=== PATIENT | female | born 1995 | race Caucasian/White ===

== ENCOUNTER → 2024-07-17 | Outpatient (CLI) | payer OTHER | END | disposition home or self-care (01) | LOC: LAB 15:34 → LAB SHORT 15:34 | DX: R82.90 Unspecified abnormal findings in urine (principal) | CPT/HCPCS: 87077; 87086; 87186 ==

== ENCOUNTER 2025-04-17 19:30 | Observation (INO) | payer OTHER ==
[~2025-04-17] VITALS: Ht 162.6 cm; Wt 88.6 kg
[2025-04-17 20:02] LABS: BASOPHILS ABSOLUTE AUTO 0.04 K/mm3 (0.00-0.23); BASOPHILS PERCENT AUTO 0 % (0-2); EOSINOPHILS ABSOLUTE AUTO 0.10 K/mm3 (0.00-0.68); EOSINOPHILS PERCENT AUTO 1 % (0-6); Hematocrit 40.9 % (33.0-51.0); Hemoglobin 13.6 g/dL (11.5-16.0); IMMATURE GRAN ABSOLUTE AUTO 0.02 K/mm3 (0.00-0.10); IMMATURE GRAN PERCENT AUTO 0 % (0-1); LYMPHOCYTES ABSOLUTE AUTO 2.37 K/mm3 (0.84-5.20); LYMPHOCYTES PERCENT AUTO 24 % (21-46); MONOCYTES ABSOLUTE AUTO 0.75 K/mm3 (0.16-1.47); MONOCYTES PERCENT AUTO 7 % (4-13); Mean Corpuscular HGB Conc 33.3 g/dL (31.5-36.5); Mean Corpuscular Volume 92 fL (80-100); NEUTROPHILS ABSOLUTE AUTO 6.79 K/mm3 (1.96-9.15); NEUTROPHILS PERCENT AUTO 68 % (41-73); NRBC ABSOLUTE 0.00 K/mm3 (0.00-0.02); NRBC Auto 0.0 /100 WBC (0.0-0.2); Platelet Count 289 K/mm3 (150-400); RDW Coefficient Variation 12.5 % (11.7-14.2); RDW Standard Deviation 42.5 fL (35.1-46.3)
[2025-04-17 20:11] LABS: Source, Urine Clean Catch
[2025-04-17 20:14] LABS: Bilirubin, Urine Neg (Neg); Glucose Qualitative, Urine Neg (Neg); Ketones, Urine Neg (Neg); Leukocyte Esterase, Urine 3+ (Neg); Protein, Urine 2+ (Neg); Specific Gravity, Urine 1.025 (1.003-1.022); Urobilinogen, Urine NORM (Normal)
[2025-04-17 20:20] LABS: Alanine Aminotransfer (ALT/SGP 28.0 U/L (12-78); Albumin, Blood 4.2 g/dL (3.4-5.0); Albumin/Globulin Ratio 1.0 (0.8-1.8); Anion Gap 9.0 mmol/L (3-11); Aspartate Aminotrans (AST/SGOT 16.0 U/L (12-37); Bilirubin, Total 0.4 mg/dL (0.1-1.0); Blood Urea Nitrogen 17.0 mg/dL (8-24); CO2, Blood 24.0 mmol/L (21-32); Calcium, Blood 9.2 mg/dL (8.5-10.1); Chloride, Blood 106.0 mmol/L (98-108); Creatinine, Blood 0.71 mg/dL (0.40-1.00); Globulin, Blood 4.0 g/dL (2.2-4.0); Glucose, Blood 92.0 mg/dL (70-99); Potassium, Blood 3.4 mmol/L (3.5-5.5); Sodium, Blood 136.0 mmol/L (136-145); Total Protein, Blood 8.2 g/dL (6.4-8.2)
[2025-04-17 20:25] LABS: Color, Urine Yellow (P-Yellow); White Blood Cells, Urine TNTC /hpf (0-5)
[2025-04-17] MEDS ORDERED: Potassium Chloride 10 Meq Tablet SA PO ONE (20:45)
[2025-04-17] MEDS ORDERED: Ondansetron HCl 2 MG / ML 2ML Vial IV ONE (20:45)
[2025-04-17] MEDS ORDERED: NS 1,000 ML IV SCH (20:45)
[2025-04-17] MEDS ORDERED: Ketorolac Tromethamine 30mg Vial IV ONE (20:45)
[2025-04-17] MEDS ORDERED: CefTRIAXone Sodium 1,000 MG in NS 100 ML IV ONE (20:45)
[2025-04-17] MEDS ORDERED: FentaNYL Citrate 50 MCG/ML 2 ML Injection IV ONE ×2 (22:25→23:25)
[2025-04-18 01:03] LABS: Bacterial Vaginosis PCR Negative (NEGATIVE); Candida Group, PCR NOT DETECTED (NOT DETECT); Candida glabrata-krusei, PCR NOT DETECTED (NOT DETECT)
[2025-04-18] MEDS ORDERED: HYDROmorphone HCl/Pf 1MG SYR IV ONE (01:25)
[2025-04-18] MEDS ORDERED: Lidocaine 2% Jelly Uro-Jet UR ONE (01:25)
[2025-04-18 01:33] LABS: Chlamydia Trachomatis Vaginal NOT DETECTED (NOT DETECT); Neisseria Gonorrhoea Vaginal NOT DETECTED (NOT DETECT)
[2025-04-18] MEDS ORDERED: Ondansetron HCl 2 MG / ML 2ML Vial IV ONE (02:05)
[2025-04-18] MEDS ORDERED: MetroNIDAZOLE 500MG/NS 100 ml 100 ML IV ONE (02:50)
[2025-04-18] MEDS ORDERED: Doxycycline Hyclate 100 MG in Dextrose 5% 250 ML IV ONE (02:50)
[2025-04-18] MEDS ORDERED: Ondansetron HCl 2 MG / ML 2ML Vial IV PRN ×2 (03:20→09:30)
[2025-04-18] MEDS ORDERED: HYDROmorphone HCl/Pf 1MG SYR IV PRN (03:20)
[2025-04-18] MEDS ORDERED: DiphenhydrAMINE HCl 50 MG/ML 1ML Vial IV ONE (03:50)
[2025-04-18 07:58] VITALS: BP 134/75
[2025-04-18] MEDS ORDERED: NITR100CA PO (08:02)
[2025-04-18] MEDS ORDERED: IBUP800 PO (08:02)
[2025-04-18] MEDS ORDERED: NS 1,000 ML IV SCH ×2 (09:25→14:40)
--- NOTE | 2025-04-18 09:27 | NUR ---
ARRIVAL TO UNIT AFTER RECEIVING REPORT FROM ED RN, PATIENT TRANSFERRED TO UNIT AT APPROX 0750 VIA . PATIENT ALERT AND ORIENTED X4. COMMUNICATING NEEDS EFFECTIVELY. ABLE TO STAND AND TRANSFER FROM WC TO BED W/ SBA. VSS. SBP 130s. MAP >65. DENIES CHEST PAIN, PRESSURE. ON ROOM AIR, SATs >90%. MILD SOB FOLLOWING ACTIVITY - EASES AT REST. TREMOR NOTED T/O - PER PATIENT, IT IS COLD AND PAIN RELATED. MULTIPLE WARM BLANKETS IN PLACE AND MEDICATED PER EMAR. K PAD PLACED. PATIENT REPORTING RELIEF. MD PONCE CONTACTED W/ UPDATE BY [employer] DRIVER ANISH. ORDER TO PLACE ROBERTS CATHETER DUE TO RETENTION - ROBERTS CATH NOW IN PLACE. PAINFUL INSERTION RELATED TO INCREASED INFLAMMATION. MINIMAL YELLOW VAGINAL DISCHARGE NOTED. ROBERTS CATHETER DRAINING ORANGE URINE TO GRAVITY - RECEIVED DOSE OF PYRIDIUM IN ED. MD PONCE AT BEDSIDE AT APPROX 0915. TO REVIEW CHART AND PLACE ORDERS. PATIENT ABLE TO EAT - REGULAR DIET IN PLACE. REPORTING DECREASED APPETITE AND NAUSEA - MEDICATED PER EMAR. CALL LIGHT IN REACH.
[2025-04-18] MEDS ORDERED: Ketorolac Tromethamine 30mg Vial IV PRN (09:40)
--- NOTE | 2025-04-18 10:54 | NUR ---
NAUSEA PATIENT REPORTING PERSISTENT NAUSEA, NO VOMITING DESPITE IV ZOFRAN ADMINISTRATION PER EMAR. MD PONCE CONTACTED - ORDER RECEIVED FOR IV COMPAZINED 5-10MG Q6H PRN.
[2025-04-18] MEDS ORDERED: Prochlorperazine Edisylate 10 mg Vial IV PRN (10:55)
[2025-04-18 14:58] VITALS: BP 125/79
--- NOTE | 2025-04-18 16:22 | NUR ---
SHIFT SUMMARY NO ACUTE CHANGES THIS SHIFT. PATIENT RESTED T/O DAY - EASILY AROUSABLE WITH VERBAL STIMULI. REPOSITIONS HERSELF INDEPENDENTLY IN BED. VSS. MANAGING PELVIC PAIN PER EMAR AND W/ KPAD. EPISODES OF NAUSEA, NO VOMITING - MANAGING PER EMAR. DECREASED APPETITE. IVF INFUSING PER EMAR. ROBERTS CATHETER DRAINING ORANGE URINE TO GRAVITY. CALL LIGHT IN REACH. MULTIPLE FAMILY MEMBERS AT BEDSIDE T/O DAY.
[2025-04-18 19:41] VITALS: BP 124/80
[2025-04-18] MEDS ORDERED: CefTRIAXone Sodium 2,000 MG in NS 100 ML IV SCH (21:00)
--- NOTE | 2025-04-19 04:42 | NUR ---
SHIFT SUMMARY S/P UTI. A&O x4, USES CALL LIGHT APPROPRIATELY. PT SLEPT WELL OVERNIGHT. IV FLUIDS/ABX INFUSING PER EMAR. PT REPORTS NAUSEA, RELIEVED c MEDICATION PER EMAR. TOLERATING MIN PO FLUID INTAKE. ROBERTS DRAINING DARK YELLOW/ORANGE URINE TO GRAVITY. SBA R/T LINES. CALL LIGHT IN REACH, BED IN LOWEST POSITION, WILL REPORT TO DAY RN.
[2025-04-19 05:21] VITALS: BP 122/79
[2025-04-19 05:34] LABS: BASOPHILS ABSOLUTE AUTO 0.02 K/mm3 (0.00-0.23); BASOPHILS PERCENT AUTO 0 % (0-2); EOSINOPHILS ABSOLUTE AUTO 0.12 K/mm3 (0.00-0.68); EOSINOPHILS PERCENT AUTO 2 % (0-6); Hematocrit 34.7 % (33.0-51.0); Hemoglobin 11.6 g/dL (11.5-16.0); IMMATURE GRAN ABSOLUTE AUTO 0.01 K/mm3 (0.00-0.10); IMMATURE GRAN PERCENT AUTO 0 % (0-1); LYMPHOCYTES ABSOLUTE AUTO 1.87 K/mm3 (0.84-5.20); LYMPHOCYTES PERCENT AUTO 31 % (21-46); MONOCYTES ABSOLUTE AUTO 0.47 K/mm3 (0.16-1.47); MONOCYTES PERCENT AUTO 8 % (4-13); Mean Corpuscular HGB Conc 33.4 g/dL (31.5-36.5); Mean Corpuscular Volume 92 fL (80-100); NEUTROPHILS ABSOLUTE AUTO 3.56 K/mm3 (1.96-9.15); NEUTROPHILS PERCENT AUTO 59 % (41-73); NRBC ABSOLUTE 0.00 K/mm3 (0.00-0.02); NRBC Auto 0.0 /100 WBC (0.0-0.2); Platelet Count 259 K/mm3 (150-400); RDW Coefficient Variation 12.9 % (11.7-14.2); RDW Standard Deviation 43.7 fL (35.1-46.3)
[2025-04-19 06:12] LABS: Anion Gap 7.0 mmol/L (3-11); Blood Urea Nitrogen 8.0 mg/dL (8-24); CO2, Blood 25.0 mmol/L (21-32); Calcium, Blood 8.3 mg/dL (8.5-10.1); Chloride, Blood 112.0 mmol/L (98-108); Creatinine, Blood 0.67 mg/dL (0.40-1.00); Glucose, Blood 94.0 mg/dL (70-99); Potassium, Blood 3.7 mmol/L (3.5-5.5); Sodium, Blood 140.0 mmol/L (136-145)
[2025-04-19 07:19] VITALS: BP 103/63
[2025-04-19 14:47] VITALS: BP 111/71
--- NOTE | 2025-04-19 17:23 | NUR ---
SHIFT NOTE: PT A/OX4 ABLE TO MAKE NEEDS KNOWN. SHE HAS BEEN RESTING T/O DAY REPORTING FATIGUE. SHE HAD NAUSEA, MEDICATED PER EMAR. SHE IS TOLERATING MINIMAL PO INTAKE. ROBERTS DRAINING YELLOW URINE TO GRAVITY. IND IN ROOM FOR ADLS. CALL LIGHT IN REACH, CARE CONTINUES
[2025-04-19 19:40] VITALS: BP 106/67
--- NOTE | 2025-04-20 04:09 | NUR ---
SHIFT SUMMARY S/P UTI. A&O x4, USES CALL LIGHT APPROPRIATELY. PT SLEPT WELL OVERNIGHT. IV ABX INFUSING PER EMAR. PT REPORTS NAUSEA IMPROVED. TOLERATING MIN PO FLUID INTAKE. ROBERTS DRAINING YELLOW URINE TO GRAVITY. ANTICIPATED ROBERTS D/C c BLADDER TRAINING. PT REPORTS PAIN TOLERABLE. SBA R/T LINES. CALL LIGHT IN REACH, BED IN LOWEST POSITION, WILL REPORT TO DAY RN.
[2025-04-20 05:14] VITALS: BP 117/75
[2025-04-20 07:17] VITALS: BP 116/74
[2025-04-20 15:00] VITALS: BP 123/82
--- NOTE | 2025-04-20 17:15 | NUR ---
SUMMARY NO ACUTE CHANGES T/O SHIFT. ALEJANDRA WAS DC'D THIS AM PER ORDERS AND PT HAS BEEN VOIDING. REPORTS DISCOMFORT WITH VOIDS THAT IS TOLERABLE AFTER RECEIVING PYRIDIUM PER ORDERS. PT HAD BM THIS SHIFT. PLEASANT AND COOPERATIVE WITH CARE. CALL LIGHT IN REACH. INDEPENDENT IN ROOM.
[2025-04-20 19:30] VITALS: BP 122/78
--- NOTE | 2025-04-20 22:32 | NUR ---
REPORT GIVEN TO FLEX Del Rosario RN. PT A/O X4 MEDICATED X1 FOR PAIN WITH TORADOL. PT RESTING WITH S.O. AT BEDSIDE. CALL LIGHT IN REACH.
--- NOTE | 2025-04-20 23:01 | NUR ---
ASSUMED CARE OF PT. PT SITTING UP IN BED, SPOUSE AT BEDSIDE, NO DISTRESS NOTED. PT DENIES NEEDS. WILL MONITOR AND TX PER ORDERS.
[2025-04-21] VITALS (25 sets, daily range): BP systolic 11–128; BP diastolic 49–85
--- NOTE | 2025-04-21 06:36 | NUR ---
PT HAD UNEVENTFUL NIGHT. PT REP VOIDING W/O DIFFICULTY. PAIN MGD W/TORADOL W/REP RELIEF. PT NPO POST MIDNIGHT FOR PLANNED SURGERY TODAY. PT REP FEELING ANXIOUS ABOUT PENDING SURGERY, SUPPORT AND EDUCATION PROVIDED PRN.
--- NOTE | 2025-04-21 08:48 | NUR ---
PT TO OR AT ABOUT 0830
[2025-04-21] MEDS ORDERED: Ketorolac Tromethamine 30mg Vial ONE (08:50)
[2025-04-21] MEDS ORDERED: Rocuronium Bromide 10 MG/ML 5ML Injection IV ONE ×3 (08:50→11:35)
[2025-04-21] MEDS ORDERED: Metoclopramide HCl 5MG / ML 2ML Vial ONE (08:50)
[2025-04-21] MEDS ORDERED: Ondansetron HCl 2 MG / ML 2ML Vial ONE (08:50)
[2025-04-21] MEDS ORDERED: Dexamethasone Sod Phos 10 MG/ML 1ML VIAL ONE (08:50)
[2025-04-21] MEDS ORDERED: Sugammadex Sodium 200 MG/2ML SDV (100 MG/ML) ONE (08:51)
--- NOTE | 2025-04-21 09:39 | NUR ---
PT TO OR AT ABOUT 0964
--- NOTE | 2025-04-21 10:01 | NUR ---
PT BROUGHT FROM FLOOR TO DAY SURGERY FOR PROCEDURE. History, Chart, Medications and Allergies reviewed before start of procedure. Lungs clear T/O to Auscultation. Patient confirms NPO status and agrees with scheduled surgery. Pre-Op teaching done. Pt verbalizes understanding. PT BELONGINGS LEFT IN PERSONAL ROOM ON SURGICAL FLOOR. PT GLASSES TAKEN TO PACU FOR SAFEKEEPING. PT HAS LIP PIERCING, NOSE RING, AND NIPPLE PIERCINGS THAT CANNOT BE REMOVED. JEWELRY WAIVER SIGNED, JEWELRY TAPED AND OR TEAM NOTIFIED.
[2025-04-21] MEDS ORDERED: CeFAZolin Sodium 2,000 MG in NS 100 ML IV SCH (10:05)
[2025-04-21] MEDS ORDERED: Bupivacaine 0.5% HCl 5 MG/ML 30MLVIAL ONE (10:07)
[2025-04-21] MEDS ORDERED: HYDROmorphone HCl/Pf 1MG SYR ONE (10:37)
[2025-04-21] MEDS ORDERED: DiphenhydrAMINE HCl 50 MG/ML 1ML Vial ONE (10:47)
[2025-04-21] MEDS ORDERED: Percocet 5-3251 EACH PO (10:56)
[2025-04-21] MEDS ORDERED: PHENA200 PO (10:57)
[2025-04-21] MEDS ORDERED: FentaNYL Citrate 50 MCG/ML 2 ML Injection ONE ×2 (11:02→13:56)
[2025-04-21] MEDS ORDERED: Metoclopramide HCl 5MG / ML 2ML Vial IV PRN (11:20)
[2025-04-21] MEDS ORDERED: Albuterol 2.5 MG/3 ML VIAL INH PRN (11:25)
[2025-04-21] MEDS ORDERED: FentaNYL Citrate 50 MCG/ML 2 ML Injection IV PRN ×2 (11:25→11:30)
[2025-04-21] MEDS ORDERED: HYDROmorphone HCl/Pf 1MG SYR IV PRN ×2 (11:25)
[2025-04-21] MEDS ORDERED: Prochlorperazine Edisylate 10 mg Vial IV PRN (11:25)
[2025-04-21] MEDS ORDERED: ePHEDrine Sulfate 50 MG/ML 1ML Injection IV PRN (11:30)
[2025-04-21] MEDS ORDERED: Ondansetron HCl 2 MG / ML 2ML Vial IV PRN (11:30)
--- NOTE | 2025-04-21 12:54 | NUR ---
1248 - Pt w oral airway present upon transfer of care in PACU. VSS, no indication pain.
--- NOTE | 2025-04-21 18:06 | NUR ---
SUMMARY: PT HAS DONE WELL POST OP. VSS, A/O. ABLE TO AMBULATE AND VOID. PAIN BETTER TONIGHT, STILL A LITTLE DROWSY. SURGICAL SITES WNL. DC ORDERS IF PT WOULD LIKE TO GO HOME TONIGHT.
[2025-04-22 00:47] VITALS: BP 116/72
[2025-04-22 03:16] VITALS: BP 120/75
--- NOTE | 2025-04-22 08:18 | NUR ---
SHIFT SUMMARY NOC. PT POD 1 FOR EX LAP, REMOVAL OF IUD, AND MOOSE. PT'S LAP SITES C/D/I. PT MEDICATED FOR PAIN AND NAUSEA WITH REPORTED RELIEF OF SX. PT ON PERIOD AND HAVING LIGHT NORMAL SANGINEOUS DRAINAGE PER VAGINA. PT VOIDING URINE. PT MAKES NEEDS KNOWN, CALL LIGHT IN REACH.
[2025-04-22 08:59] VITALS: BP 116/65
--- NOTE | 2025-04-22 10:30 | NUR ---
DISCHARGE PT EDUCATED ON AND RECEIVED PRINTED DISCHARGE INSTRUCTIONS AND VERBALIZED AN UNDERSTANDING. PT REPORTS ALREADY FILLING HER NEW RX. IV DC'D. PT GATHERING PERSONAL BELONGINGS AND WAITING FOR RIDE HOME. SPOUSE AT BEDSIDE FOR SUPPORT.
--- NOTE | 2025-04-22 11:28 | NUR ---
PT DISCHARGED HOME AT THIS TIME WITH AND PERSONAL BELONGINGS.
== END 2025-04-22 11:49 | disposition home or self-care (01) ==
LOC: ER 19:30 → SURS 19:31 → ERHOLD 19:31 → SURS 19:31 → ER 19:31 → ERHOLD 04-18 07:46 → SURS 04-18 07:46
PROVIDERS: Obstetrics & Gynecology; Student in an Organized Health Care Education/Training Program; ADMIT Obstetrics & Gynecology
PROC: 0U524ZZ Destruction of Bilateral Ovaries, Percutaneous Endoscopic Approach (ICD-10-PCS; principal; 2025-04-21 09:30)
PROC: 0U544ZZ Destruction of Uterine Supporting Structure, Percutaneous Endoscopic Approach (ICD-10-PCS; principal; 2025-04-21 09:30)
PROC: 0UPD8HZ Removal of Contraceptive Device from Uterus and Cervix, Via Natural or Artificial Opening Endoscopic (ICD-10-PCS; principal; 2025-04-21 09:30)
PROC: 0U598ZZ Destruction of Uterus, Via Natural or Artificial Opening Endoscopic (ICD-10-PCS; principal; 2025-04-21 09:30)
DX: G89.29 Other chronic pain (principal); R10.2 Pelvic and perineal pain; R33.9 Retention of urine, unspecified; N30.00 Acute cystitis without hematuria; N80.103 Endometriosis of bilateral ovaries, unspecified depth; N80.359 Endometriosis of pelvic sidewall, unspecified side, unspecified depth; N80.3C1 Endometriosis of the right uterosacral ligament, unspecified depth; N80.329 Endometriosis of the posterior cul-de-sac, unspecified depth; T83.32XA Displacement of intrauterine contraceptive device, initial encounter; N83.292 Other ovarian cyst, left side; N83.201 Unspecified ovarian cyst, right side; Z79.1 Long term (current) use of non-steroidal anti-inflammatories (NSAID); Z79.2 Long term (current) use of antibiotics; Y76.8 Miscellaneous obstetric and gynecological devices associated with adverse incidents, not elsewhere classified
CPT/HCPCS: 36415; 51701; 74177; 80048; 80053; 81001; 81515; 83690; 84703; 85025; 87086; 87491; 87591; 94760; 96361; 96365; 96375; 96376; 99285-25; A9270; G0378; J0690; J0696; J0780; J1100; J1171; J1200; J1885; J2405; J2704; J2765; J3010; J7030; J7060; J7120; Q9967